=== PATIENT | male | born 1960 | race Caucasian/White ===

== ENCOUNTER 2017-06-09 20:11 | Emergency (ER) | payer OTHER ==
[~2017-06-09] VITALS: Ht 177.8 cm; Wt 110.0 kg
[2017-06-09 20:22] VITALS: BP 161/105; PULSE 116; RESP 20; TEMP 98.2; O2SAT 95
[2017-06-09] MEDS ORDERED: SODIUM CHLOR 0.9% 1000 ML INJ 1,000 ML IV SCH (20:40)
[2017-06-09] MEDS ORDERED: ALUMINUM/MAGNESIUM/SIMETH 30 ML CUP PO ONE (20:45)
[2017-06-09] MEDS ORDERED: LIDOCAINE VISCOUS 2% SOLN 15 ML UDC PO ONE (20:45)
[2017-06-09] MEDS ORDERED: FAMOTIDINE 20 MG/2 ML VIAL IV PUSH ONE (20:45)
[2017-06-09] MEDS ORDERED: PANTOPRAZOLE SODIUM 40 MG VIAL IVP ONE (20:45)
[2017-06-09] MEDS ORDERED: SODIUM CHLORIDE 0.9% FLUSH 10 ML FLUSH IV FLUSH PRN (20:45)
--- NOTE | 2017-06-09 20:45 | PD ---
HPI Chief Complaint: Abdominal Pain Time Seen by Provider: 20:36 Travel History International Travel<30 days: No Contact w/Intl Traveler<30days: No Traveled to known affect area: No History of Present Illness HPI The patient is a 57-year-old male that complains of midline epigastric pain for several weeks. He feels bloating and a lot of pressure on the top of his stomach. He denies any melanotic or bloody stools. He denies any fever. He denies any nausea, vomiting or diarrhea. The pain is often worse at night. His pain is burning pain and a 6/10. He denies any chest pain. He does want to be checked out for heart problems tonight. The patient states that he always has elevation of his skeletal muscle enzymes because of his muscle mass and because of his work. [facility] Social History Tobacco Use: Yes Allergies-Medications (Allergen,Severity, Reaction): Coded Allergies: No Known Allergies (Unverified , 06/09/17) Reported Meds & Prescriptions Reported Meds & Active Scripts Active Omeprazole 20 Mg Tab 20 Mg PO DAILY Zantac (Ranitidine HCl) 150 Mg Tab 150 Mg PO BID Review of Systems Except as stated in HPI: all other systems reviewed are Neg Physical Exam Narrative GENERAL: The patient is alert, slightly obese, oriented 3 in slight apparent distress with his midline epigastric discomfort. His vital signs show blood pressure 161/105 with heart rate of 116 but are otherwise normal. SKIN: Focused skin assessment warm/dry. HEAD: Atraumatic. Normocephalic. EYES: Pupils equal and round. No scleral icterus. No injection or drainage. ENT: No nasal bleeding or discharge. Mucous membranes pink and moist. NECK: Trachea midline. No JVD. CARDIOVASCULAR: Regular rate and rhythm. No murmur appreciated. RESPIRATORY: No accessory muscle use. Clear to auscultation. Breath sounds equal bilaterally. GASTROINTESTINAL: Abdomen soft, with tenderness in the midline epigastrium to direct palpation, nondistended. Hepatic and splenic margins not palpable. No guarding or rebound is present. There is no right upper quadrant tenderness and Rubin's sign is negative. MUSCULOSKELETAL: No obvious deformities. No clubbing. No cyanosis. No edema. NEUROLOGICAL: Awake and alert. No obvious cranial nerve deficits. Motor grossly within normal limits. Normal speech. PSYCHIATRIC: Appropriate mood and affect; insight and judgment normal. Data Data Last Documented VS Vital Signs Date Time Temp Pulse Resp B/P (MAP) Pulse Ox O2 Delivery O2 Flow Rate FiO2 06/09/17 21:07 102 18 149/78 (101) 98 Room Air 06/09/17 20:22 98.2 Orders Orders Complete Blood Count With Diff (06/09/17 20:40) Comprehensive Metabolic Panel (06/09/17 20:40) Lipase (06/09/17 20:40) Iv Access Insert/Monitor (06/09/17 20:40) Ecg Monitoring (06/09/17 20:40) Oximetry (06/09/17 20:40) Pantoprazole Inj (Protonix Inj) (06/09/17 20:45) Sodium Chlor 0.9% 1000 Ml Inj (Ns 1000 M (06/09/17 20:40) Sodium Chloride 0.9% Flush (Ns Flush) (06/09/17 20:45) Famotidine Inj (Pepcid Inj) (06/09/17 20:45) Al-Mag Hy-Si 40-40-4 Mg/Ml Liq (Mag-Al P (06/09/17 20:45) Lidocaine 2% Viscous (Xylocaine 2% Visco (06/09/17 20:45) Electrocardiogram (06/09/17 21:43) Ckmb (Isoenzyme) Profile (06/09/17 20:53) Troponin I (06/09/17 20:53) CKMB (06/09/17 20:53) CKMB% (06/09/17 20:53) Labs Laboratory Tests Test 06/09/17 20:53 White Blood Count 12.5 TH/MM3 Red Blood Count 4.77 MIL/MM3 Hemoglobin 15.1 GM/DL Hematocrit 44.3 % Mean Corpuscular Volume 92.9 FL Mean Corpuscular Hemoglobin 31.6 PG Mean Corpuscular Hemoglobin Concent 34.0 % Red Cell Distribution Width 13.9 % Platelet Count 162 TH/MM3 Mean Platelet Volume 8.6 FL Neutrophils (%) (Auto) 71.0 % Lymphocytes (%) (Auto) 18.0 % Monocytes (%) (Auto) 5.4 % Eosinophils (%) (Auto) 1.4 % Basophils (%) (Auto) 4.2 % Neutrophils # (Auto) 8.9 TH/MM3 Lymphocytes # (Auto) 2.2 TH/MM3 Monocytes # (Auto) 0.7 TH/MM3 Eosinophils # (Auto) 0.2 TH/MM3 Basophils # (Auto) 0.5 TH/MM3 CBC Comment DIFF FINAL Differential Comment Blood Urea Nitrogen 17 MG/DL Creatinine 0.98 MG/DL Random Glucose 93 MG/DL Total Protein 8.1 GM/DL Albumin 3.8 GM/DL Calcium Level 9.0 MG/DL Alkaline Phosphatase 129 U/L Aspartate Amino Transf (AST/SGOT) 31 U/L Alanine Aminotransferase (ALT/SGPT) 67 U/L Total Bilirubin 0.2 MG/DL Sodium Level 137 MEQ/L Potassium Level 3.9 MEQ/L Chloride Level 105 MEQ/L Carbon Dioxide Level 26.1 MEQ/L Anion Gap 6 MEQ/L Estimat Glomerular Filtration Rate 78 ML/MIN Total Creatine Kinase 704 U/L Creatine Kinase MB 8.1 NG/ML Creatine Kinase MB % 1.2 % Troponin I LESS THAN 0.02 NG/ML Lipase 99 U/L MDM Medical Decision Making Medical Screen Exam Complete: Yes Emergency Medical Condition: Yes Medical Record Reviewed: Yes Interpretation(s) The complete metabolic profile shows a GFR of 78 an alkaline phosphatase of 129 but is otherwise normal. The lipase is normal. The CBC shows a white count of 12,500 but is otherwise normal. The EKG shows sinus tachycardia [address] elevation or depression. The complete metabolic profile shows a GFR of 78, alkaline phosphatase of 129 but is otherwise normal. The troponin I is normal and the CK-MB percentage is normal. Differential Diagnosis GERD, ulcer pain, pancreatitis, electrolyte disorder, anemia, acute coronary syndrome Narrative Course The patient has no evidence of myocardial damage. He likely has GERD. Plan: The patient was given Prilosec and Zantac prescriptions. He needs to follow-up with his primary care physician next week. Additional Instructions: The pain in your stomach appears to be gastroesophageal reflux disease. Take the Prilosec 1 tablet twice daily for a few days and then go back to 1 tablet once daily. The Zantac is twice daily. Follow-up with your primary care physician next week. Elevate the head of your bed at night so that the acid does not contact the esophagus. You can take liquid Maalox or Mylanta for temporary relief of discomfort. Try to completely discontinue smoking. Med/Other Pt SpecificInfo: Prescription(s) given Scripts Omeprazole (Omeprazole) 20 Mg Tab 20 MG PO DAILY, #30 TAB 0 Refills Prov: Caden Oliver MD 06/09/17 Ranitidine (Zantac) 150 Mg Tab 150 MG PO BID for Reduce Stomach Acid, #60 TAB 0 Refills Prov: Caden Oliver MD 06/09/17 Disposition: 01 DISCHARGE HOME Condition: Stable Caden Oliver MD Jun 09, 2017 20:45
[2017-06-09 20:50] VITALS: RESP 18; O2SAT 98
[2017-06-09 21:04] LABS: AUTOMATED NEUTROPHIL # 8.9 TH/MM3 (1.8-7.7); BASOPHIL # 0.5 TH/MM3 (0-0.2); BASOPHIL % 4.2 % (0.0-2.0); EOSINOPHIL # 0.2 TH/MM3 (0-0.4); EOSINOPHIL % 1.4 % (0.0-4.0); HEMATOCRIT 44.3 % (39.0-51.0); HEMOGLOBIN 15.1 GM/DL (13.0-17.0); LYMPHOCYTE # 2.2 TH/MM3 (1.0-4.8); MEAN CELL VOLUME 92.9 FL (80.0-100.0); MEAN CORPUSCULAR HEMOGLOBIN 31.6 PG (27.0-34.0); MEAN PLATELET VOLUME 8.6 FL (7.0-11.0); MONO % 5.4 % (0.0-8.0); MONOCYTE # 0.7 TH/MM3 (0-0.9); PLATELET COUNT 162 TH/MM3 (150-450); RED BLOOD COUNT 4.77 MIL/MM3 (4.50-5.90); RED CELL DISTRIBUTION WIDTH 13.9 % (11.6-17.2); WHITE BLOOD COUNT 12.5 TH/MM3 (4.0-11.0)
[2017-06-09 21:07] VITALS: BP 149/78; PULSE 102; RESP 18; O2SAT 98
[2017-06-09 21:11] LABS: CHLORIDE 105 MEQ/L (98-107); SODIUM (NA) 137 MEQ/L (136-145)
[2017-06-09 21:14] LABS: ALBUMIN 3.8 GM/DL (3.4-5.0); BICARBONATE 26.1 MEQ/L (21.0-32.0); BLOOD UREA NITROGEN 17 MG/DL (7-18); GLUCOSE,RANDOM 93 MG/DL (74-106)
[2017-06-09 21:17] LABS: ALT (GPT) 67 U/L (12-78); AST (GOT) 31 U/L (15-37); CREATININE 0.98 MG/DL (0.60-1.30); GLOMERULAR FILTRATION RATE 78 ML/MIN (>89)
[2017-06-09 21:19] LABS: TOTAL BILIRUBIN ADULT 0.2 MG/DL (0.2-1.0); TOTAL PROTEIN 8.1 GM/DL (6.4-8.2)
[2017-06-09 21:20] LABS: ALKALINE PHOSPHATASE 129 U/L (45-117)
[2017-06-09 22:01] LABS: TROPONIN I LESS THAN 0.02 NG/ML (0.02-0.05)
[2017-06-09] MEDS ORDERED: ZANT150T2 PO (22:30)
[2017-06-09] MEDS ORDERED: OMEP20TA93 PO (22:30)
--- NOTE | 2017-06-10 14:23 | EKG ---
Date Performed: 06/09/2017 Time Performed: 21:52:59 PTAGE: 57 years EKG: SINUS TACHYCARDIA NONSPECIFIC T-WAVE ABNORMALITY ABNORMAL RHYTHM ECG NO PREVIOUS TRACING DOCTOR: Vandana West Interpretating Date/Time 06/10/2017 14:20:42
== END 2017-06-09 22:50 | disposition home or self-care (01) ==
LOC: PHED 20:11
DX: K21.9 Gastro-esophageal reflux disease without esophagitis (principal); R94.31 Abnormal electrocardiogram [ECG] [EKG]; Z72.0 Tobacco use
CPT/HCPCS: 80053; 82550; 82552; 83690; 84484; 85025; 93005; 96361; 96374; 96375; 99284; C9113; J7030